=== PATIENT | female | born 1985 | race Caucasian/White ===

== ENCOUNTER 2019-03-30 14:42 | Inpatient (IN) ==
[2019-03-30 15:59] LABS: Basophils # 0.1 K/mcL (0.0-0.2); Basophils % 0.4 %; Eosinophils % 0.1 %; Hematocrit 45.7 % (35.3-44.9); Hemoglobin 14.7 g/dL (11.5-15.4); Immature Granulocytes % 0.6 % (0-4); Lymphocytes # 4.4 K/mcL (0.6-4.6); Lymphocytes % 21.7 %; Mean Corpuscular HGB Conc 32.2 g/dL (31.6-35.5); Mean Corpuscular Hemoglobin 32.2 pg (28.0-33.3); Mean Platelet Volume 11.1 fL (9.4-12.4); Monocytes # 2.1 K/mcL (0.0-1.3); Monocytes % 10.3 %; Neutrophils # 13.4 K/mcL (1.6-8.9); Platelet Count 247 K/mcL (140-400); Red Blood Count 4.57 M/mcL (3.82-4.97); Red Cell Distribution Width 12.8 % (11.5-14.5); Segmented Neutrophils % 66.9 %; White Blood Count 20.1 K/mcL (4.3-11.1)
[2019-03-30 16:25] LABS: BUN/Creatinine Ratio 20 (6-26); Blood Urea Nitrogen 14 mg/dL (6-20); Calcium 10.2 mg/dL (8.6-10.3); Carbon Dioxide 29 mEq/L (23-29); Chloride 98 mEq/L (98-107); Glucose 134 mg/dL (70-105); Osmolality,Calculated 290 (280-300); Potassium 4.3 mEq/L (3.5-5.1); Sodium 139 mEq/L (136-145); eGFR For African Americans > 60 (> 60); eGFR For Non-African Americans > 60 (> 60)
[2019-03-30 16:27] LABS: Troponin I 0.04 ng/mL (< 0.04)
[2019-03-30] MEDS ORDERED: 0.9 % Sodium Chloride 1,000 ML IVC ONE (16:31)
[2019-03-30] MEDS ORDERED: cefTRIAXone 1,000 MG in Water for inj. (sterile) 10 ML IVP ONE (16:37)
[2019-03-30] MEDS ORDERED: levoFLOXacin 750 MG/150 ML 750 MG/150 ML BAG IVPB ONE (16:37)
[2019-03-30 16:38] LABS: Bilirubin,Urine Negative (Negative); Blood,Urine Moderate (Negative); Clarity,Urine Cloudy (Clear); Color,Urine Dark Yellow (Yellow); Glucose,Urine (UA) Normal (Normal); Ketones,Urine Trace mg/dL (Negative); Leukocyte Esterase,Urine Large (Negative); Nitrite,Urine Negative (Negative); PH,Urine 6.5 pH Units (5.0-8.0); Protein,Urine 30 mg/dL (Neg-Trace); Specific Gravity,Urine > 1.030 (1.010-1.025); Urobilinogen,Urine Normal (Normal)
[2019-03-30] MEDS ORDERED: Isovue-370 500 ML BOTTLE IVP ONE (16:38)
[2019-03-30 16:41] LABS: Bacteria,Urine Many per hpf (None-Few); Hyaline Casts,Urine None Seen per lpf (None-Few); Squamous Epithelial Cell,Urine Many per lpf (None-Few); WBC,Urine 50-100 per hpf (0-3)
[2019-03-30] MEDS ORDERED: Acetaminophen 325 MG TABLET PO PRN (19:00)
[2019-03-30] MEDS ORDERED: Naloxone 0.4 MG/ML INJ IVP PRN (19:00)
[2019-03-30] MEDS ORDERED: Temazepam 15 MG CAPSULE PO SCH (21:00)
[2019-03-30] MEDS ORDERED: *HR* LORazepam 1 MG TABLET PO ONE (21:21)
[2019-03-30] MEDS: Ringers Solution, Lactated 1,000 ML IVC SCH (22:15)
[2019-03-30] MEDS: Divalproex Sodium 125 MG CAPSULE PO SCH (22:15)
[2019-03-30] MEDS: Cyprohepatdine 4 MG TABLET PO SCH (22:22)
[2019-03-30] MEDS: *HR* Heparin 5,000 UNIT/ML VIAL SQ SCH (22:33)
[2019-03-31 01:26] LABS: Hematocrit 41.4 % (35.3-44.9); Hemoglobin 12.9 g/dL (11.5-15.4); Mean Corpuscular HGB Conc 31.2 g/dL (31.6-35.5); Mean Corpuscular Hemoglobin 32.2 pg (28.0-33.3); Mean Corpuscular Volume 103.2 fL (83.0-100.0); Mean Platelet Volume 11.1 fL (9.4-12.4); Platelet Count 217 K/mcL (140-400); Red Blood Count 4.01 M/mcL (3.82-4.97); Red Cell Distribution Width 12.6 % (11.5-14.5); White Blood Count 12.9 K/mcL (4.3-11.1)
[2019-03-31 01:41] LABS: BUN/Creatinine Ratio 19 (6-26); Blood Urea Nitrogen 11 mg/dL (6-20); Carbon Dioxide 27 mEq/L (23-29); Chloride 103 mEq/L (98-107); Glucose 120 mg/dL (70-105); Magnesium 1.8 mg/dL (1.6-2.6); Osmolality,Calculated 289 (280-300); Potassium 4.1 mEq/L (3.5-5.1); Sodium 139 mEq/L (136-145); eGFR For African Americans > 60 (> 60); eGFR For Non-African Americans > 60 (> 60)
[2019-03-31] MEDS: Cyprohepatdine 4 MG TABLET PO SCH ×2 (09:07→20:34)
[2019-03-31] MEDS: Divalproex (12 HR) 250 MG TABLET PO SCH (09:07)
[2019-03-31] MEDS: levoFLOXacin 750 MG/150 ML 750 MG/150 ML BAG IVPB SCH (09:08)
[2019-03-31] MEDS: *HR* Heparin 5,000 UNIT/ML VIAL SQ SCH ×3 (09:08→23:33)
[2019-03-31] MEDS: Ringers Solution, Lactated 1,000 ML IVC SCH (12:40)
[2019-03-31] MEDS: Ipratropium/Albuterol Neb 3 ML IH SCH ×2 (16:06→22:23)
[2019-03-31] MEDS: Divalproex Sodium 125 MG CAPSULE PO SCH (20:34)
[2019-04-01] MEDS ORDERED: *HR* LORazepam 2 MG/ML VIAL IVP ONE (01:53)
[2019-04-01 02:37] LABS: ABG Base Excess 3 mEq/L (-2 to 3); ABG HCO3 31 mEq/L (21-27); ABG Oxygen Saturation 91 % (95-98); ABG PCO2 62 mmHg (35-45); ABG PH 7.31 pH Units (7.32-7.45); ABG PO2 69 mmHg (85-104); ABG TCO2 33 mEq/L (20-26)
[2019-04-01] MEDS: Ipratropium/Albuterol Neb 3 ML IH SCH ×4 (04:16→22:25)
[2019-04-01 05:11] LABS: Hematocrit 40.2 % (35.3-44.9); Hemoglobin 12.6 g/dL (11.5-15.4); Mean Corpuscular HGB Conc 31.3 g/dL (31.6-35.5); Mean Platelet Volume 10.5 fL (9.4-12.4); Platelet Count 288 K/mcL (140-400); Red Blood Count 3.94 M/mcL (3.82-4.97); Red Cell Distribution Width 12.6 % (11.5-14.5); White Blood Count 9.2 K/mcL (4.3-11.1)
[2019-04-01 05:27] LABS: BUN/Creatinine Ratio 16 (6-26); Blood Urea Nitrogen 10 mg/dL (6-20); Calcium 9.5 mg/dL (8.6-10.3); Carbon Dioxide 31 mEq/L (23-29); Chloride 102 mEq/L (98-107); Glucose 132 mg/dL (70-105); Osmolality,Calculated 291 (280-300); Potassium 4.4 mEq/L (3.5-5.1); Sodium 140 mEq/L (136-145); eGFR For African Americans > 60 (> 60); eGFR For Non-African Americans > 60 (> 60)
[2019-04-01] MEDS: *HR* Heparin 5,000 UNIT/ML VIAL SQ SCH ×2 (08:08→15:56)
[2019-04-01] MEDS: Divalproex (12 HR) 250 MG TABLET PO SCH (08:10)
[2019-04-01] MEDS: Cyprohepatdine 4 MG TABLET PO SCH ×2 (08:10→20:59)
[2019-04-01] MEDS: levoFLOXacin 750 MG/150 ML 750 MG/150 ML BAG IVPB SCH (08:10)
[2019-04-01] MEDS: Divalproex Sodium 125 MG CAPSULE PO SCH (20:59)
[2019-04-02] MEDS: *HR* Heparin 5,000 UNIT/ML VIAL SQ SCH ×3 (00:27→15:05)
[2019-04-02] MEDS: Ipratropium/Albuterol Neb 3 ML IH SCH ×2 (04:47→09:57)
[2019-04-02 04:58] LABS: Hematocrit 43.9 % (35.3-44.9); Hemoglobin 13.7 g/dL (11.5-15.4); Mean Corpuscular HGB Conc 31.2 g/dL (31.6-35.5); Mean Corpuscular Hemoglobin 32.5 pg (28.0-33.3); Platelet Count 345 K/mcL (140-400); Red Blood Count 4.22 M/mcL (3.82-4.97); Red Cell Distribution Width 12.5 % (11.5-14.5); White Blood Count 8.8 K/mcL (4.3-11.1)
[2019-04-02 05:11] LABS: BUN/Creatinine Ratio 17 (6-26); Blood Urea Nitrogen 10 mg/dL (6-20); Calcium 9.8 mg/dL (8.6-10.3); Carbon Dioxide 33 mEq/L (23-29); Chloride 102 mEq/L (98-107); Glucose 122 mg/dL (70-105); Osmolality,Calculated 292 (280-300); Potassium 4.5 mEq/L (3.5-5.1); Sodium 141 mEq/L (136-145); eGFR For African Americans > 60 (> 60); eGFR For Non-African Americans > 60 (> 60)
[2019-04-02] MEDS: levoFLOXacin 750 MG/150 ML 750 MG/150 ML BAG IVPB SCH (09:45)
[2019-04-02] MEDS: Cyprohepatdine 4 MG TABLET PO SCH ×2 (09:46→20:57)
[2019-04-02] MEDS: Divalproex (12 HR) 250 MG TABLET PO SCH (09:46)
[2019-04-02] MEDS ORDERED: *HR* Metoprolol 5 MG/5 ML VIAL IVP ONE (11:13)
[2019-04-02] MEDS: Metoprolol XL (24 HR) Succ 25 MG TAB.ER.24H PO SCH (11:50)
[2019-04-02] MEDS: Divalproex Sodium 125 MG CAPSULE PO SCH (20:57)
[2019-04-02] MEDS ORDERED: Levalbuterol Neb 1.25 MG/3 ML ONE (21:41)
[2019-04-02] MEDS ORDERED: Levalbuterol Neb 0.63 MG/3 ML ONE ×2 (21:46→21:47)
[2019-04-02] MEDS: Levalbuterol Neb 0.63 MG/3 ML IH SCH (21:48)
[2019-04-03] MEDS: *HR* Heparin 5,000 UNIT/ML VIAL SQ SCH ×2 (00:02→07:06)
[2019-04-03] MEDS: Levalbuterol Neb 0.63 MG/3 ML IH SCH ×2 (02:23→07:55)
[2019-04-03 05:05] LABS: Hematocrit 44.8 % (35.3-44.9); Mean Corpuscular HGB Conc 31.3 g/dL (31.6-35.5); Mean Corpuscular Hemoglobin 32.2 pg (28.0-33.3); Mean Platelet Volume 10.1 fL (9.4-12.4); Platelet Count 395 K/mcL (140-400); Red Blood Count 4.35 M/mcL (3.82-4.97); Red Cell Distribution Width 12.6 % (11.5-14.5)
[2019-04-03 05:17] LABS: White Blood Count 13.5 K/mcL (4.3-11.1)
[2019-04-03 05:18] LABS: BUN/Creatinine Ratio 24 (6-26); Blood Urea Nitrogen 16 mg/dL (6-20); Calcium 10.2 mg/dL (8.6-10.3); Carbon Dioxide 32 mEq/L (23-29); Chloride 99 mEq/L (98-107); Glucose 133 mg/dL (70-105); Osmolality,Calculated 289 (280-300); Potassium 4.1 mEq/L (3.5-5.1); Sodium 138 mEq/L (136-145); eGFR For African Americans > 60 (> 60); eGFR For Non-African Americans > 60 (> 60)
[2019-04-03] MEDS: Divalproex (12 HR) 250 MG TABLET PO SCH (11:02)
[2019-04-03] MEDS: levoFLOXacin 750 MG/150 ML 750 MG/150 ML BAG IVPB SCH (11:02)
[2019-04-03] MEDS: Cyprohepatdine 4 MG TABLET PO SCH (11:02)
[2019-04-03] MEDS: Metoprolol XL (24 HR) Succ 25 MG TAB.ER.24H PO SCH (11:02)
[2019-04-03 12:52] VITALS: BP 118/83
== END 2019-04-03 15:20 | disposition home or self-care (01) | DRG 871 ==
LOC: EMEROOARM 14:42 → 3BNU 14:42 → SUATTDRO 20:07 → 3BNU 22:49
PROVIDERS: ADMIT Internal Medicine; ATTEND Pharmacist

== ENCOUNTER 2019-08-09 18:38 | Inpatient (IN) ==
[2019-08-09] MEDS ORDERED: 0.9 % Sodium Chloride 1,000 ML IVC ONE (19:15)
[2019-08-09 20:33] LABS: Basophils # 0.1 K/mcL (0.0-0.2); Basophils % 0.8 %; Eosinophils % 0.1 %; Hematocrit 39.9 % (35.3-44.9); Hemoglobin 13.3 g/dL (11.5-15.4); Immature Granulocytes % 2.1 % (0-4); Lymphocytes % 34.2 %; Mean Corpuscular HGB Conc 33.3 g/dL (31.6-35.5); Mean Corpuscular Hemoglobin 32.9 pg (28.0-33.3); Mean Corpuscular Volume 98.8 fL (83.0-100.0); Mean Platelet Volume 10.9 fL (9.4-12.4); Monocytes # 0.7 K/mcL (0.0-1.3); Monocytes % 8.3 %; Nucleated Red Blood Cells 3.2 /100 WBC (0); Platelet Count 258 K/mcL (140-400); Red Blood Count 4.04 M/mcL (3.82-4.97); Red Cell Distribution Width 13.2 % (11.5-14.5); Segmented Neutrophils % 54.5 %; White Blood Count 8.7 K/mcL (4.3-11.1)
[2019-08-09 20:37] LABS: Neutrophils # 4.7 K/mcL (1.6-8.9)
[2019-08-09 20:48] LABS: Bilirubin,Urine Small (Negative); Blood,Urine Moderate (Negative); Clarity,Urine Cloudy (Clear); Color,Urine Yellow (Yellow); Glucose,Urine (UA) Normal (Normal); Ketones,Urine 40 mg/dL (Negative); Leukocyte Esterase,Urine Small (Negative); Nitrite,Urine Negative (Negative); Protein,Urine 100 mg/dL (Neg-Trace); Specific Gravity,Urine > 1.030 (1.010-1.025); Urobilinogen,Urine Normal (Normal)
[2019-08-09 20:49] LABS: Platelet Estimate Normal (Normal)
[2019-08-09 20:50] LABS: Polychromasia 1+ (Not Present)
[2019-08-09 20:54] LABS: Bacteria,Urine Few per hpf (None-Few); Hyaline Casts,Urine None Seen per lpf (None-Few); RBC,Urine 0-3 per hpf (0-3); Squamous Epithelial Cell,Urine Many per lpf (None-Few); WBC,Urine 30-50 per hpf (0-3)
[2019-08-09 20:55] LABS: BUN/Creatinine Ratio 23 (6-26); Blood Urea Nitrogen 17 mg/dL (6-20); Calcium 9.4 mg/dL (8.6-10.3); Carbon Dioxide 33 mEq/L (23-29); Chloride 96 mEq/L (98-107); Glucose 134 mg/dL (70-105); Osmolality,Calculated 292 (280-300); Potassium 3.7 mEq/L (3.5-5.1); Sodium 139 mEq/L (136-145); eGFR For African Americans > 60 (> 60); eGFR For Non-African Americans > 60 (> 60)
[2019-08-09 21:12] LABS: Troponin I 0.06 ng/mL (< 0.04)
[2019-08-09] MEDS ORDERED: Naloxone 0.4 MG/ML INJ IVP PRN (23:44)
[2019-08-09] MEDS ORDERED: Albuterol 2.5 MG/3 ML NEBULIZER IH PRN (23:44)
[2019-08-10] MEDS: Benzonatate 100 MG CAPSULE PO PRN (00:40)
[2019-08-10] MEDS ORDERED: Ipratropium/Albuterol Neb 3 ML IH PRN (01:22)
[2019-08-10 02:02] LABS: INR 1.1; Prothrombin Time 12.8 Seconds (9.4-12.1)
[2019-08-10] MEDS: Cyprohepatdine 4 MG TABLET PO SCH ×3 (02:07→21:00)
[2019-08-10] MEDS: Divalproex Sodium 125 MG CAPSULE PO SCH ×2 (02:07→21:00)
[2019-08-10 02:10] LABS: Alanine Aminotransferase 18 Units/L (7-52); Albumin 3.3 g/dL (3.5-5.7); Alkaline Phosphatase 42 Units/L (34-104); Aspartate Amino Transferase 21 Units/L (13-39); BUN/Creatinine Ratio 25 (6-26); Bilirubin,Total 0.6 mg/dL (0.3-1.0); Blood Urea Nitrogen 15 mg/dL (6-20); Calcium 8.7 mg/dL (8.6-10.3); Carbon Dioxide 29 mEq/L (23-29); Chloride 102 mEq/L (98-107); Chol/HDL Ratio 14.8 (0-4.9); Cholesterol 148 mg/dL (< 200); Globulin 3.2 g/dL (2.4-3.5); Glucose 117 mg/dL (70-105); HDL Cholesterol 10 mg/dL (40-59); LDL Cholesterol,Calculated 78 mg/dL (0-99); Magnesium 1.8 mg/dL (1.6-2.6); Osmolality,Calculated 290 (280-300); Phosphorous 1.7 mg/dL (2.7-4.5); Potassium 3.6 mEq/L (3.5-5.1); Sodium 139 mEq/L (136-145); Total Protein 6.5 g/dL (6.4-8.9); Triglycerides 299 mg/dL (< 150); eGFR For African Americans > 60 (> 60); eGFR For Non-African Americans > 60 (> 60)
[2019-08-10] MEDS ORDERED: *HR* Heparin 5,000 UNIT/ML VIAL IVP PRN ×2 (02:37)
[2019-08-10] MEDS ORDERED: *HR* Heparin 5,000 UNIT/ML VIAL IVP ONE (02:37)
[2019-08-10] MEDS: Heparin 25,000 UNIT/250 ML D5W 25,000 UNIT/250 ML IV.SOLN IVC SCH (03:22)
[2019-08-10] MEDS: Ipratropium/Albuterol Neb 3 ML IH SCH ×5 (03:37→22:14)
[2019-08-10] MEDS: Temazepam 15 MG CAPSULE PO SCH ×2 (04:57→21:01)
[2019-08-10 05:33] LABS: Basophils # 0.1 K/mcL (0.0-0.2); Basophils % 0.8 %; Eosinophils % 0.2 %; Hematocrit 38.8 % (35.3-44.9); Hemoglobin 12.7 g/dL (11.5-15.4); INR 1.3; Immature Granulocytes % 2.6 % (0-4); Lymphocytes # 4.3 K/mcL (0.6-4.6); Lymphocytes % 39.7 %; Mean Corpuscular HGB Conc 32.7 g/dL (31.6-35.5); Mean Corpuscular Hemoglobin 32.6 pg (28.0-33.3); Mean Corpuscular Volume 99.7 fL (83.0-100.0); Mean Platelet Volume 10.7 fL (9.4-12.4); Monocytes # 0.7 K/mcL (0.0-1.3); Monocytes % 6.2 %; Neutrophils # 5.5 K/mcL (1.6-8.9); Platelet Count 280 K/mcL (140-400); Prothrombin Time 14.7 Seconds (9.4-12.1); Red Blood Count 3.89 M/mcL (3.82-4.97); Red Cell Distribution Width 13.4 % (11.5-14.5); Segmented Neutrophils % 50.5 %; White Blood Count 10.9 K/mcL (4.3-11.1)
[2019-08-10 05:34] LABS: Hematocrit 39.4 % (35.3-44.9); Hemoglobin 12.4 g/dL (11.5-15.4); Heparin anti-factor XA UFH 0.8 IU/mL (0.30-0.70); Mean Corpuscular HGB Conc 31.5 g/dL (31.6-35.5); Mean Corpuscular Hemoglobin 32.7 pg (28.0-33.3); Mean Platelet Volume 10.8 fL (9.4-12.4); Platelet Count 260 K/mcL (140-400); Red Blood Count 3.79 M/mcL (3.82-4.97); Red Cell Distribution Width 13.2 % (11.5-14.5); White Blood Count 11.3 K/mcL (4.3-11.1)
[2019-08-10] MEDS ORDERED: *HR* Heparin 5,000 UNIT/ML VIAL SQ SCH (06:00)
[2019-08-10 06:06] LABS: Platelet Estimate Normal (Normal); Polychromasia 1+ (Not Present); Reactive Lymphocytes Present (Not Present)
[2019-08-10] MEDS ORDERED: MethylPREDNISolone 40 MG/ML VIAL IVP ONE (06:08)
[2019-08-10 08:28] LABS: Estimated Average Glucose 157 mg/dl
[2019-08-10] MEDS ORDERED: *HR* Dextrose 50 % in Water (Syg) 50 ML SYRINGE IVP PRN (08:57)
[2019-08-10] MEDS ORDERED: D5% in Water 1,000 ML IVC PRN (08:57)
[2019-08-10] MEDS ORDERED: Dextrose Gel 15 GM/37.5 ML TUBE PO PRN ×2 (08:57)
[2019-08-10] MEDS ORDERED: predniSONE 20 MG TABLET PO SCH ×2 (09:00→21:00)
[2019-08-10] MEDS: Divalproex (12 HR) 250 MG TABLET PO SCH (09:03)
[2019-08-10] MEDS ORDERED: Ondansetron 4 MG/2 ML VIAL IVP PRN (10:57)
[2019-08-10] MEDS: Insulin LISPRO 300 UNITS/3 ML VIAL SQ SCH ×3 (14:09→21:01)
[2019-08-10] MEDS ORDERED: Aspirin Enteric Coated 81 MG Tablet PO ONE ×2 (16:01→23:47)
[2019-08-11 01:51] LABS: Basophils % 0.4 %; Eosinophils % 0.3 %; Hematocrit 40.5 % (35.3-44.9); Hemoglobin 12.9 g/dL (11.5-15.4); Immature Granulocytes % 3.8 % (0-4); Mean Corpuscular HGB Conc 31.9 g/dL (31.6-35.5); Mean Corpuscular Hemoglobin 32.2 pg (28.0-33.3); Monocytes # 0.6 K/mcL (0.0-1.3); Monocytes % 5.7 %; Neutrophils # 4.2 K/mcL (1.6-8.9); Nucleated Red Blood Cells 1.6 /100 WBC (0); Platelet Count 309 K/mcL (140-400); Red Blood Count 4.01 M/mcL (3.82-4.97); Red Cell Distribution Width 13.6 % (11.5-14.5); Segmented Neutrophils % 40.8 %; White Blood Count 10.2 K/mcL (4.3-11.1)
[2019-08-11 02:12] LABS: BUN/Creatinine Ratio 12 (6-26); Blood Urea Nitrogen 8 mg/dL (6-20); Calcium 9.2 mg/dL (8.6-10.3); Carbon Dioxide 31 mEq/L (23-29); Chloride 102 mEq/L (98-107); Glucose 98 mg/dL (70-105); Osmolality,Calculated 286 (280-300); Potassium 3.2 mEq/L (3.5-5.1); Sodium 139 mEq/L (136-145); eGFR For African Americans > 60 (> 60); eGFR For Non-African Americans > 60 (> 60)
[2019-08-11 02:27] LABS: Hypochromasia Present (Not Present); Polychromasia 1+ (Not Present); Reactive Lymphocytes Present (Not Present)
[2019-08-11 02:28] LABS: Platelet Estimate Normal (Normal)
[2019-08-11] MEDS: Ipratropium/Albuterol Neb 3 ML IH SCH ×4 (03:54→22:35)
[2019-08-11] MEDS ORDERED: predniSONE 20 MG TABLET PO SCH (09:00)
[2019-08-11] MEDS ORDERED: Potassium Chloride Elixir 20 MEQ/15 ML UDC PO ONE (09:00)
[2019-08-11] MEDS: Divalproex (12 HR) 250 MG TABLET PO SCH (09:01)
[2019-08-11] MEDS: Insulin LISPRO 300 UNITS/3 ML VIAL SQ SCH ×4 (09:02→23:28)
[2019-08-11] MEDS: Aspirin Enteric Coated 81 MG Tablet PO SCH (09:02)
[2019-08-11] MEDS: Cyprohepatdine 4 MG TABLET PO SCH ×2 (09:02→23:01)
[2019-08-11] MEDS ORDERED: Isovue-370 500 ML BOTTLE IVP ONE (09:46)
[2019-08-11] MEDS ORDERED: levoFLOXacin 500 MG/100 ML 500 MG/100 ML BAG IVPB SCH (13:00)
[2019-08-11 13:28] LABS: ABG Base Excess 6 mEq/L (-2 to 3); ABG HCO3 33 mEq/L (21-27); ABG Oxygen Saturation 95 % (95-98); ABG PCO2 56 mmHg (35-45); ABG PH 7.38 pH Units (7.32-7.45); ABG PO2 79 mmHg (85-104); ABG TCO2 35 mEq/L (20-26)
[2019-08-11] MEDS: MethylPREDNISolone 40 MG/ML VIAL IVP SCH ×2 (15:27→18:42)
[2019-08-11] MEDS ORDERED: Doxycycline 100 MG in 0.9 % Sodium Chloride Mini Bag 100 ML IVPB SCH (18:00)
[2019-08-11] MEDS: Heparin 25,000 UNIT/250 ML D5W 25,000 UNIT/250 ML IV.SOLN IVC SCH (20:36)
[2019-08-11] MEDS: Temazepam 15 MG CAPSULE PO SCH (23:01)
[2019-08-11] MEDS: Divalproex Sodium 125 MG CAPSULE PO SCH (23:01)
[2019-08-11] MEDS: Doxycycline 100 MG in 0.9 % Sodium Chloride Mini Bag 100 ML IVPB SCH (23:01)
[2019-08-12] MEDS: Ipratropium/Albuterol Neb 3 ML IH SCH ×4 (04:41→22:05)
[2019-08-12] MEDS: MethylPREDNISolone 40 MG/ML VIAL IVP SCH ×2 (06:17→17:15)
[2019-08-12 07:58] LABS: Basophils # 0.1 K/mcL (0.0-0.2); Basophils % 0.7 %; Hemoglobin 13.1 g/dL (11.5-15.4); Immature Granulocytes % 3.6 % (0-4); Lymphocytes # 2.6 K/mcL (0.6-4.6); Lymphocytes % 17.9 %; Mean Corpuscular HGB Conc 33.6 g/dL (31.6-35.5); Mean Corpuscular Hemoglobin 33.1 pg (28.0-33.3); Mean Corpuscular Volume 98.5 fL (83.0-100.0); Monocytes # 0.9 K/mcL (0.0-1.3); Neutrophils # 10.5 K/mcL (1.6-8.9); Nucleated Red Blood Cells 0.2 /100 WBC (0); Platelet Count 415 K/mcL (140-400); Red Blood Count 3.96 M/mcL (3.82-4.97); Segmented Neutrophils % 71.8 %; White Blood Count 14.6 K/mcL (4.3-11.1)
[2019-08-12 08:05] LABS: BUN/Creatinine Ratio 21 (6-26); Blood Urea Nitrogen 13 mg/dL (6-20); Calcium 9.9 mg/dL (8.6-10.3); Carbon Dioxide 30 mEq/L (23-29); Chloride 98 mEq/L (98-107); Glucose 157 mg/dL (70-105); Osmolality,Calculated 295 (280-300); Potassium 3.8 mEq/L (3.5-5.1); Sodium 141 mEq/L (136-145); eGFR For African Americans > 60 (> 60); eGFR For Non-African Americans > 60 (> 60)
[2019-08-12 08:21] LABS: Reactive Lymphocytes Present (Not Present)
[2019-08-12 08:25] LABS: Hypochromasia Present (Not Present); Polychromasia 1+ (Not Present)
[2019-08-12] MEDS: Aspirin Enteric Coated 81 MG Tablet PO SCH (09:25)
[2019-08-12] MEDS: Divalproex (12 HR) 250 MG TABLET PO SCH (09:25)
[2019-08-12] MEDS: Insulin LISPRO 300 UNITS/3 ML VIAL SQ SCH ×4 (09:26→20:54)
[2019-08-12] MEDS: Cyprohepatdine 4 MG TABLET PO SCH ×2 (09:26→20:54)
[2019-08-12] MEDS: Doxycycline 100 MG in 0.9 % Sodium Chloride Mini Bag 100 ML IVPB SCH ×2 (10:41→23:13)
[2019-08-12] MEDS: *HR* Heparin 5,000 UNIT/ML VIAL SQ SCH ×2 (13:49→20:55)
[2019-08-12 16:04] LABS: Adenovirus Not Detected (Not Detect); Bordetella Pertussis Not Detected (Not Detect); Chlamydophila pneumoniae Not Detected (Not Detect); Coronavirus 229E Not Detected (Not Detect); Coronavirus HKU1 Not Detected (Not Detect); Coronavirus NL63 Not Detected (Not Detect); Coronavirus OC43 Not Detected (Not Detect); Human Metapneumovirus Not Detected (Not Detect); Human Rhinovirus/Enterovirus Not Detected (Not Detect); Influenza A Subtype 2009 H1 Not Detected (Not Detect); Influenza B Not Detected (Not Detect); Mycoplasma pneumoniae Not Detected (Not Detect); Parainfluenza Virus 1 Not Detected (Not Detect); Parainfluenza Virus 2 Not Detected (Not Detect); Parainfluenza Virus 3 Not Detected (Not Detect); Parainfluenza Virus 4 Not Detected (Not Detect); Respiratory Syncytial Virus Not Detected (Not Detect)
[2019-08-12] MEDS: Temazepam 15 MG CAPSULE PO SCH (20:54)
[2019-08-12] MEDS: Divalproex Sodium 125 MG CAPSULE PO SCH (20:54)
[2019-08-12] MEDS: Budesonide/Formoterol 160/4.5 1 PUFF INH IH SCH (22:05)
[2019-08-13] MEDS: Ipratropium/Albuterol Neb 3 ML IH SCH ×4 (04:42→22:49)
[2019-08-13] MEDS: MethylPREDNISolone 40 MG/ML VIAL IVP SCH ×2 (05:38→18:50)
[2019-08-13] MEDS: *HR* Heparin 5,000 UNIT/ML VIAL SQ SCH ×3 (05:38→21:37)
[2019-08-13 06:26] LABS: Basophils # 0.1 K/mcL (0.0-0.2); Basophils % 0.7 %; Eosinophils % 0.1 %; Hematocrit 38.9 % (35.3-44.9); Hemoglobin 12.7 g/dL (11.5-15.4); Immature Granulocytes % 3.9 % (0-4); Lymphocytes # 2.2 K/mcL (0.6-4.6); Lymphocytes % 13.2 %; Mean Corpuscular HGB Conc 32.6 g/dL (31.6-35.5); Mean Corpuscular Hemoglobin 32.9 pg (28.0-33.3); Mean Corpuscular Volume 100.8 fL (83.0-100.0); Mean Platelet Volume 10.9 fL (9.4-12.4); Monocytes # 0.8 K/mcL (0.0-1.3); Monocytes % 4.9 %; Neutrophils # 13.1 K/mcL (1.6-8.9); Platelet Count 455 K/mcL (140-400); Red Blood Count 3.86 M/mcL (3.82-4.97); Red Cell Distribution Width 14.6 % (11.5-14.5); Segmented Neutrophils % 77.2 %; White Blood Count 16.9 K/mcL (4.3-11.1)
[2019-08-13 06:45] LABS: BUN/Creatinine Ratio 32 (6-26); Blood Urea Nitrogen 21 mg/dL (6-20); Calcium 10.3 mg/dL (8.6-10.3); Carbon Dioxide 29 mEq/L (23-29); Chloride 98 mEq/L (98-107); Glucose 157 mg/dL (70-105); Osmolality,Calculated 292 (280-300); Potassium 4.2 mEq/L (3.5-5.1); Sodium 138 mEq/L (136-145); eGFR For African Americans > 60 (> 60); eGFR For Non-African Americans > 60 (> 60)
[2019-08-13] MEDS: Cyprohepatdine 4 MG TABLET PO SCH ×2 (10:05→21:36)
[2019-08-13] MEDS: Aspirin Enteric Coated 81 MG Tablet PO SCH (10:05)
[2019-08-13] MEDS: Divalproex (12 HR) 250 MG TABLET PO SCH (10:05)
[2019-08-13] MEDS: Doxycycline 100 MG in 0.9 % Sodium Chloride Mini Bag 100 ML IVPB SCH ×2 (10:06→21:37)
[2019-08-13] MEDS: Insulin LISPRO 300 UNITS/3 ML VIAL SQ SCH ×4 (10:06→21:38)
[2019-08-13] MEDS: Budesonide/Formoterol 160/4.5 1 PUFF INH IH SCH ×2 (11:00→22:49)
[2019-08-13] MEDS: Temazepam 15 MG CAPSULE PO SCH (21:36)
[2019-08-13] MEDS: Benzonatate 100 MG CAPSULE PO PRN (21:36)
[2019-08-13] MEDS: Divalproex Sodium 125 MG CAPSULE PO SCH (21:37)
[2019-08-14] MEDS: Ipratropium/Albuterol Neb 3 ML IH SCH ×4 (03:44→22:35)
[2019-08-14] MEDS: MethylPREDNISolone 40 MG/ML VIAL IVP SCH ×2 (05:25→09:13)
[2019-08-14] MEDS: *HR* Heparin 5,000 UNIT/ML VIAL SQ SCH ×3 (05:26→21:21)
[2019-08-14] MEDS: Cyprohepatdine 4 MG TABLET PO SCH ×2 (09:13→21:21)
[2019-08-14] MEDS: Divalproex (12 HR) 250 MG TABLET PO SCH (09:13)
[2019-08-14] MEDS: Aspirin Enteric Coated 81 MG Tablet PO SCH (09:13)
[2019-08-14] MEDS: Insulin LISPRO 300 UNITS/3 ML VIAL SQ SCH ×4 (09:13→21:21)
[2019-08-14] MEDS: Budesonide/Formoterol 160/4.5 1 PUFF INH IH SCH ×2 (10:39→22:34)
[2019-08-14] MEDS: Doxycycline 100 MG in 0.9 % Sodium Chloride Mini Bag 100 ML IVPB SCH ×2 (11:24→23:38)
[2019-08-14 13:49] LABS: Hematocrit 42.3 % (35.3-44.9); Hemoglobin 13.3 g/dL (11.5-15.4); Mean Corpuscular HGB Conc 31.4 g/dL (31.6-35.5); Mean Corpuscular Hemoglobin 32.6 pg (28.0-33.3); Mean Corpuscular Volume 103.7 fL (83.0-100.0); Mean Platelet Volume 10.4 fL (9.4-12.4); Platelet Count 523 K/mcL (140-400); Red Blood Count 4.08 M/mcL (3.82-4.97); Red Cell Distribution Width 14.6 % (11.5-14.5); White Blood Count 13.3 K/mcL (4.3-11.1)
[2019-08-14 14:21] LABS: Lymphocytes # 1.9 K/mcL (0.6-4.6); Monocytes # 0.3 K/mcL (0.0-1.3); Neutrophils # 11.2 K/mcL (1.6-8.9); Platelet Estimate Increased (Normal)
[2019-08-14 14:22] LABS: Reactive Lymphocytes Present (Not Present)
[2019-08-14] MEDS: Divalproex Sodium 125 MG CAPSULE PO SCH (21:20)
[2019-08-14] MEDS: Temazepam 15 MG CAPSULE PO SCH (21:21)
[2019-08-15] MEDS: Ipratropium/Albuterol Neb 3 ML IH SCH ×4 (03:47→21:27)
[2019-08-15] MEDS: *HR* Heparin 5,000 UNIT/ML VIAL SQ SCH ×3 (06:21→20:38)
[2019-08-15] MEDS: Aspirin Enteric Coated 81 MG Tablet PO SCH (08:19)
[2019-08-15] MEDS: Insulin LISPRO 300 UNITS/3 ML VIAL SQ SCH ×4 (08:19→20:46)
[2019-08-15] MEDS: Divalproex (12 HR) 250 MG TABLET PO SCH (08:19)
[2019-08-15] MEDS: Cyprohepatdine 4 MG TABLET PO SCH ×2 (08:19→20:38)
[2019-08-15] MEDS: MethylPREDNISolone 40 MG/ML VIAL IVP SCH (08:20)
[2019-08-15 09:02] LABS: Basophils # 0.1 K/mcL (0.0-0.2); Basophils % 0.9 %; Eosinophils % 0.1 %; Hematocrit 40.8 % (35.3-44.9); Immature Granulocytes % 4.8 % (0-4); Lymphocytes # 5.5 K/mcL (0.6-4.6); Lymphocytes % 34.2 %; Mean Corpuscular HGB Conc 31.9 g/dL (31.6-35.5); Mean Corpuscular Hemoglobin 33.2 pg (28.0-33.3); Mean Corpuscular Volume 104.1 fL (83.0-100.0); Mean Platelet Volume 10.2 fL (9.4-12.4); Monocytes # 1.3 K/mcL (0.0-1.3); Monocytes % 8.3 %; Neutrophils # 8.4 K/mcL (1.6-8.9); Nucleated Red Blood Cells 0.1 /100 WBC (0); Platelet Count 494 K/mcL (140-400); Red Blood Count 3.92 M/mcL (3.82-4.97); Red Cell Distribution Width 14.6 % (11.5-14.5); Segmented Neutrophils % 51.7 %; White Blood Count 16.2 K/mcL (4.3-11.1)
[2019-08-15] MEDS: Budesonide/Formoterol 160/4.5 1 PUFF INH IH SCH ×2 (10:28→21:27)
[2019-08-15] MEDS: Doxycycline 100 MG in 0.9 % Sodium Chloride Mini Bag 100 ML IVPB SCH ×2 (11:36→22:32)
[2019-08-15] MEDS: Temazepam 15 MG CAPSULE PO SCH (20:38)
[2019-08-15] MEDS: Divalproex Sodium 125 MG CAPSULE PO SCH (20:39)
[2019-08-16] MEDS: Ipratropium/Albuterol Neb 3 ML IH SCH ×2 (03:54→11:32)
[2019-08-16] MEDS: *HR* Heparin 5,000 UNIT/ML VIAL SQ SCH (05:06)
[2019-08-16 06:38] LABS: Basophils # 0.1 K/mcL (0.0-0.2); Basophils % 0.9 %; Eosinophils % 0.1 %; Hemoglobin 12.8 g/dL (11.5-15.4); Immature Granulocytes % 5.3 % (0-4); Lymphocytes # 5.8 K/mcL (0.6-4.6); Lymphocytes % 41.9 %; Mean Corpuscular HGB Conc 32.8 g/dL (31.6-35.5); Mean Corpuscular Hemoglobin 33.2 pg (28.0-33.3); Mean Platelet Volume 10.6 fL (9.4-12.4); Monocytes # 0.9 K/mcL (0.0-1.3); Monocytes % 6.8 %; Neutrophils # 6.2 K/mcL (1.6-8.9); Platelet Count 469 K/mcL (140-400); Red Blood Count 3.86 M/mcL (3.82-4.97); Red Cell Distribution Width 14.6 % (11.5-14.5); White Blood Count 13.8 K/mcL (4.3-11.1)
[2019-08-16 07:04] LABS: Platelet Estimate Normal (Normal)
[2019-08-16] MEDS: Insulin LISPRO 300 UNITS/3 ML VIAL SQ SCH (07:59)
[2019-08-16] MEDS ORDERED: predniSONE 20 MG TABLET PO SCH (09:00)
[2019-08-16 10:12] VITALS: BP 97/66
[2019-08-16] MEDS: Budesonide/Formoterol 160/4.5 1 PUFF INH IH SCH (11:32)
[2019-08-16] MEDS: Aspirin Enteric Coated 81 MG Tablet PO SCH (12:58)
[2019-08-16] MEDS: Cyprohepatdine 4 MG TABLET PO SCH (12:58)
[2019-08-16] MEDS: Divalproex (12 HR) 250 MG TABLET PO SCH (12:58)
== END 2019-08-16 13:51 | disposition home or self-care (01) | DRG 280 ==
LOC: 3ANU 18:38 → EMEROOARM 18:38 → SUATTDRO 22:06 → 3ANU 23:38
PROVIDERS: ADMIT Family Medicine; ATTEND Internal Medicine

== ENCOUNTER 2021-03-12 09:54 | Inpatient (IN) ==
[2021-03-12] MEDS: 0.9 % Sodium Chloride 1,000 ML IVC SCH ×2 (10:53→12:55)
[2021-03-12 11:04] LABS: Basophils # 0.1 K/mcL (0.0-0.2); Basophils % 0.4 %; Eosinophils % 0.1 %; Hematocrit 45.9 % (35.3-44.9); Hemoglobin 14.3 g/dL (11.5-15.4); Immature Granulocytes % 1.2 % (0-4); Lymphocytes # 2.1 K/mcL (0.6-4.6); Lymphocytes % 14.3 %; Mean Corpuscular HGB Conc 31.2 g/dL (31.6-35.5); Mean Corpuscular Hemoglobin 31.5 pg (28.0-33.3); Mean Corpuscular Volume 101.1 fL (83.0-100.0); Mean Platelet Volume 11.3 fL (9.4-12.4); Monocytes # 1.2 K/mcL (0.0-1.3); Monocytes % 8.1 %; Nucleated Red Blood Cells 0.2 /100 WBC (0); Platelet Count 293 K/mcL (140-400); Red Blood Count 4.54 M/mcL (3.82-4.97); Red Cell Distribution Width 15.7 % (11.5-14.5); Segmented Neutrophils % 75.9 %; White Blood Count 14.5 K/mcL (4.3-11.1)
[2021-03-12 11:14] LABS: INR 1.3; Prothrombin Time 14.5 Seconds (9.4-12.1)
[2021-03-12 11:17] LABS: Activated Partial Thrombo Time 33.9 Seconds (26.0-36.0)
[2021-03-12 11:31] LABS: BUN/Creatinine Ratio 10 (6-26); Blood Urea Nitrogen 10 mg/dL (6-20); Carbon Dioxide 24 mEq/L (23-29); Chloride 99 mEq/L (98-107); Potassium 3.6 mEq/L (3.5-5.1); Sodium 137 mEq/L (136-145)
[2021-03-12 11:32] LABS: Alanine Aminotransferase 18 Units/L (7-52); Albumin 3.7 g/dL (3.5-5.7); Albumin/Globulin Ratio 1.1 (1.1-2.2); Alkaline Phosphatase 67 Units/L (34-104); Aspartate Amino Transferase 31 Units/L (13-39); Bilirubin,Direct 0.1 mg/dL (0.0-0.2); Bilirubin,Indirect 0.3 mg/dL (0.0-1.0); Bilirubin,Total 0.4 mg/dL (0.3-1.0); Calcium 9.4 mg/dL (8.6-10.3); Globulin 3.5 g/dL (2.4-3.5); Glucose 271 mg/dL (70-105); Magnesium 1.4 mg/dL (1.6-2.6); Osmolality,Calculated 293 (280-300); Total Protein 7.2 g/dL (6.4-8.9); Troponin I 0.08 ng/mL (< 0.04); eGFR For African Americans > 60 (> 60); eGFR For Non-African Americans > 60 (> 60)
[2021-03-12] MEDS ORDERED: Isovue-370 500 ML BOTTLE IVP ONE (11:51)
[2021-03-12 11:52] LABS: Adenovirus Not Detected (Not Detect); Bordetella Pertussis Not Detected (Not Detect); Chlamydophila pneumoniae Not Detected (Not Detect); Coronavirus 229E Not Detected (Not Detect); Coronavirus HKU1 Not Detected (Not Detect); Coronavirus NL63 Not Detected (Not Detect); Coronavirus OC43 Not Detected (Not Detect); Human Metapneumovirus Not Detected (Not Detect); Human Rhinovirus/Enterovirus DETECTED (Not Detect); Influenza A Subtype 2009 H1 Not Detected (Not Detect); Influenza B Not Detected (Not Detect); Mycoplasma pneumoniae Not Detected (Not Detect); Parainfluenza Virus 1 Not Detected (Not Detect); Parainfluenza Virus 2 Not Detected (Not Detect); Parainfluenza Virus 3 Not Detected (Not Detect); Parainfluenza Virus 4 Not Detected (Not Detect); Respiratory Syncytial Virus Not Detected (Not Detect); SARS-CoV-2 Not Detected (Not Detect)
[2021-03-12 12:13] LABS: C-Reactive Protein 127 mg/L (Less than 10)
[2021-03-12] MEDS ORDERED: cefTRIAXone 1,000 MG in Water for inj. (sterile) 10 ML IVP ONE (13:08)
[2021-03-12] MEDS ORDERED: Azithromycin 500 MG in 0.9 % Sodium Chloride 250 ML IVPB ONE (13:08)
[2021-03-12] MEDS ORDERED: Aspirin 325 MG TABLET PO ONE (13:21)
[2021-03-12 13:47] LABS: Bilirubin,Urine Negative (Negative); Blood,Urine Negative (Negative); Clarity,Urine Clear (Clear); Color,Urine Light Yellow (Yellow); Glucose,Urine (UA) 100 mg/dL (Normal); Ketones,Urine Negative (Negative); Leukocyte Esterase,Urine Negative (Negative); Nitrite,Urine Negative (Negative); Protein,Urine 30 mg/dL (Neg-Trace); Urobilinogen,Urine Normal (Normal)
[2021-03-12 13:48] LABS: Bacteria,Urine Few per hpf (None-Few); Hyaline Casts,Urine Few per lpf (None Seen); Mucus,Urine Few per lpf (None-Few); RBC,Urine 0-3 per hpf (0-3); Specific Gravity,Urine > 1.030 (1.010-1.025); Squamous Epithelial Cell,Urine Few per hpf (None-Few); WBC,Urine 0-3 per hpf (0-3)
[2021-03-12] MEDS ORDERED: Naloxone 0.4 MG/ML INJ IVP PRN (14:48)
[2021-03-12] MEDS ORDERED: methylPREDNISolone 125 MG/2 ML VIAL IVP ONE (14:51)
[2021-03-12] MEDS ORDERED: *HR* Dextrose 50 % in Water (Vial) 50 ML VIAL IVP PRN (14:55)
[2021-03-12] MEDS ORDERED: Dextrose Gel 15 GM/37.5 ML TUBE PO PRN ×2 (14:55)
[2021-03-12] MEDS ORDERED: D5% in Water 1,000 ML IVC PRN (14:55)
[2021-03-12] MEDS ORDERED: Ipratropium/Albuterol Neb 3 ML ONE (15:02)
[2021-03-12] MEDS: Ipratropium/Albuterol Neb 3 ML IH SCH ×2 (16:00→22:27)
[2021-03-12] MEDS ORDERED: Magnesium Sulfate 2 GM in D5% in Water 100 ML IVPB ONE (17:04)
[2021-03-12] MEDS: Insulin LISPRO 300 UNITS/3 ML VIAL SUBQ SCH ×2 (17:44→20:57)
[2021-03-12] MEDS: *HR* Heparin 5,000 UNIT/ML VIAL SQ SCH (17:49)
[2021-03-12] MEDS: levoFLOXacin 750 MG/150 ML 750 MG/150 ML BAG IVPB SCH (18:59)
[2021-03-12] MEDS: Divalproex Sodium 125 MG Sprinkle Capsule (DR) PO SCH (20:54)
[2021-03-12] MEDS: Cyprohepatdine 4 MG TABLET PO SCH (20:54)
[2021-03-12] MEDS: Baclofen 10 MG TABLET PO SCH (20:55)
[2021-03-13] MEDS: MethylPREDNISolone 40 MG/ML VIAL IVP SCH ×3 (01:08→16:00)
[2021-03-13 03:24] LABS: Basophils % 0.3 %; Hematocrit 42.7 % (35.3-44.9); Hemoglobin 13.9 g/dL (11.5-15.4); Immature Granulocytes % 1.5 % (0-4); Lymphocytes % 8.3 %; Mean Corpuscular HGB Conc 32.6 g/dL (31.6-35.5); Mean Corpuscular Hemoglobin 32.4 pg (28.0-33.3); Mean Corpuscular Volume 99.5 fL (83.0-100.0); Mean Platelet Volume 10.8 fL (9.4-12.4); Monocytes # 0.2 K/mcL (0.0-1.3); Monocytes % 1.6 %; Neutrophils # 10.9 K/mcL (1.6-8.9); Platelet Count 226 K/mcL (140-400); Red Blood Count 4.29 M/mcL (3.82-4.97); Red Cell Distribution Width 15.4 % (11.5-14.5); Segmented Neutrophils % 88.3 %; White Blood Count 12.3 K/mcL (4.3-11.1)
[2021-03-13] MEDS: Ipratropium/Albuterol Neb 3 ML IH SCH ×4 (03:30→22:27)
[2021-03-13 03:47] LABS: BUN/Creatinine Ratio 17 (6-26); Blood Urea Nitrogen 10 mg/dL (6-20); Calcium 8.3 mg/dL (8.6-10.3); Carbon Dioxide 26 mEq/L (23-29); Chloride 105 mEq/L (98-107); Glucose 216 mg/dL (70-105); Magnesium 1.8 mg/dL (1.6-2.6); Osmolality,Calculated 290 (280-300); Phosphorous 2.4 mg/dL (2.7-4.5); Potassium 4.6 mEq/L (3.5-5.1); Sodium 137 mEq/L (136-145); eGFR For African Americans > 60 (> 60); eGFR For Non-African Americans > 60 (> 60)
[2021-03-13] MEDS: *HR* Heparin 5,000 UNIT/ML VIAL SQ SCH ×2 (05:30→16:14)
[2021-03-13] MEDS: Baclofen 10 MG TABLET PO SCH ×2 (09:30→20:14)
[2021-03-13] MEDS: Divalproex Sodium 125 MG Sprinkle Capsule (DR) PO SCH ×2 (09:30→20:14)
[2021-03-13] MEDS: Cyprohepatdine 4 MG TABLET PO SCH ×2 (09:30→20:14)
[2021-03-13] MEDS: Insulin LISPRO 300 UNITS/3 ML VIAL SUBQ SCH ×4 (09:30→20:14)
[2021-03-13] MEDS: levoFLOXacin 750 MG/150 ML 750 MG/150 ML BAG IVPB SCH (12:24)
[2021-03-14] MEDS: MethylPREDNISolone 40 MG/ML VIAL IVP SCH ×3 (00:12→18:23)
[2021-03-14] MEDS: Ipratropium/Albuterol Neb 3 ML IH SCH ×4 (04:22→21:43)
[2021-03-14] MEDS: *HR* Heparin 5,000 UNIT/ML VIAL SQ SCH ×2 (06:03→17:02)
[2021-03-14] MEDS: levoFLOXacin 750 MG/150 ML 750 MG/150 ML BAG IVPB SCH (09:22)
[2021-03-14] MEDS: Divalproex Sodium 125 MG Sprinkle Capsule (DR) PO SCH ×2 (09:25→20:32)
[2021-03-14] MEDS: Baclofen 10 MG TABLET PO SCH ×2 (09:25→20:34)
[2021-03-14] MEDS: Cyprohepatdine 4 MG TABLET PO SCH ×2 (09:25→20:33)
[2021-03-14] MEDS: Insulin LISPRO 300 UNITS/3 ML VIAL SUBQ SCH ×4 (09:26→20:40)
[2021-03-15] MEDS: MethylPREDNISolone 40 MG/ML VIAL IVP SCH ×3 (00:08→16:52)
[2021-03-15] MEDS: Ipratropium/Albuterol Neb 3 ML IH SCH ×4 (03:44→21:41)
[2021-03-15] MEDS: *HR* Heparin 5,000 UNIT/ML VIAL SQ SCH ×2 (05:10→16:52)
[2021-03-15] MEDS: Divalproex Sodium 125 MG Sprinkle Capsule (DR) PO SCH ×2 (08:55→21:39)
[2021-03-15] MEDS: Baclofen 10 MG TABLET PO SCH ×2 (08:56→21:38)
[2021-03-15] MEDS: Cyprohepatdine 4 MG TABLET PO SCH ×2 (08:56→21:38)
[2021-03-15] MEDS: Insulin LISPRO 300 UNITS/3 ML VIAL SUBQ SCH ×4 (08:57→21:43)
[2021-03-15] MEDS: levoFLOXacin 750 MG/150 ML 750 MG/150 ML BAG IVPB SCH (09:19)
[2021-03-15] MEDS: GuaiFENesin Liq 200 MG/10 ML UDC PO PRN (12:23)
[2021-03-16] MEDS: MethylPREDNISolone 40 MG/ML VIAL IVP SCH
[2021-03-16] MEDS: Ipratropium/Albuterol Neb 3 ML IH SCH ×4 (03:39→22:18)
[2021-03-16] MEDS: *HR* Heparin 5,000 UNIT/ML VIAL SQ SCH ×2 (05:58→18:19)
[2021-03-16] MEDS: Insulin LISPRO 300 UNITS/3 ML VIAL SUBQ SCH ×4 (07:16→22:41)
[2021-03-16 07:41] LABS: Basophils # 0.2 K/mcL (0.0-0.2); Basophils % 1.2 %; Eosinophils # 0.1 K/mcL (0.0-0.6); Eosinophils % 0.7 %; Hematocrit 43.7 % (35.3-44.9); Hemoglobin 14.2 g/dL (11.5-15.4); Immature Granulocytes % 2.9 % (0-4); Lymphocytes # 2.5 K/mcL (0.6-4.6); Lymphocytes % 19.1 %; Mean Corpuscular HGB Conc 32.5 g/dL (31.6-35.5); Mean Corpuscular Hemoglobin 32.1 pg (28.0-33.3); Mean Corpuscular Volume 98.9 fL (83.0-100.0); Mean Platelet Volume 10.7 fL (9.4-12.4); Monocytes # 0.8 K/mcL (0.0-1.3); Monocytes % 6.4 %; Nucleated Red Blood Cells 0.2 /100 WBC (0); Platelet Count 225 K/mcL (140-400); Red Blood Count 4.42 M/mcL (3.82-4.97); Red Cell Distribution Width 15.7 % (11.5-14.5); Segmented Neutrophils % 69.7 %; White Blood Count 12.9 K/mcL (4.3-11.1)
[2021-03-16 07:59] LABS: BUN/Creatinine Ratio 34 (6-26); Blood Urea Nitrogen 21 mg/dL (6-20); Calcium 9.7 mg/dL (8.6-10.3); Carbon Dioxide 31 mEq/L (23-29); Chloride 99 mEq/L (98-107); Glucose 143 mg/dL (70-105); Magnesium 2.1 mg/dL (1.6-2.6); Osmolality,Calculated 291 (280-300); Phosphorous 4.5 mg/dL (2.7-4.5); Potassium 3.9 mEq/L (3.5-5.1); Sodium 138 mEq/L (136-145); eGFR For African Americans > 60 (> 60); eGFR For Non-African Americans > 60 (> 60)
[2021-03-16] MEDS: Divalproex Sodium 125 MG Sprinkle Capsule (DR) PO SCH ×2 (09:49→22:40)
[2021-03-16] MEDS: predniSONE 20 MG TABLET PO SCH (09:49)
[2021-03-16] MEDS: levoFLOXacin 750 MG TABLET PO SCH (09:49)
[2021-03-16] MEDS: Cyprohepatdine 4 MG TABLET PO SCH ×2 (09:49→22:39)
[2021-03-16] MEDS: Baclofen 10 MG TABLET PO SCH ×2 (09:50→22:39)
[2021-03-16] MEDS: Saline Nasal Spray 44 ML BOTTLE NS PRN (12:44)
[2021-03-16 13:44] LABS: Adenovirus Not Detected (Not Detect); Bordetella Pertussis Not Detected (Not Detect); Chlamydophila pneumoniae Not Detected (Not Detect); Coronavirus 229E Not Detected (Not Detect); Coronavirus HKU1 Not Detected (Not Detect); Coronavirus NL63 Not Detected (Not Detect); Coronavirus OC43 Not Detected (Not Detect); Human Metapneumovirus Not Detected (Not Detect); Human Rhinovirus/Enterovirus DETECTED (Not Detect); Influenza A Subtype 2009 H1 Not Detected (Not Detect); Influenza B Not Detected (Not Detect); Mycoplasma pneumoniae Not Detected (Not Detect); Parainfluenza Virus 1 Not Detected (Not Detect); Parainfluenza Virus 2 Not Detected (Not Detect); Parainfluenza Virus 3 Not Detected (Not Detect); Parainfluenza Virus 4 Not Detected (Not Detect); Respiratory Syncytial Virus Not Detected (Not Detect); SARS-CoV-2 Not Detected (Not Detect)
[2021-03-17] MEDS: Ipratropium/Albuterol Neb 3 ML IH SCH ×4 (03:40→19:56)
[2021-03-17 05:45] LABS: Basophils # 0.2 K/mcL (0.0-0.2); Basophils % 1.4 %; Eosinophils % 0.1 %; Hemoglobin 15.1 g/dL (11.5-15.4); Immature Granulocytes % 3.8 % (0-4); Mean Corpuscular HGB Conc 32.1 g/dL (31.6-35.5); Mean Corpuscular Hemoglobin 31.7 pg (28.0-33.3); Mean Corpuscular Volume 98.5 fL (83.0-100.0); Mean Platelet Volume 10.6 fL (9.4-12.4); Monocytes # 0.9 K/mcL (0.0-1.3); Monocytes % 6.8 %; Platelet Count 233 K/mcL (140-400); Red Blood Count 4.77 M/mcL (3.82-4.97); Red Cell Distribution Width 15.4 % (11.5-14.5); Segmented Neutrophils % 55.9 %; White Blood Count 12.5 K/mcL (4.3-11.1)
[2021-03-17 06:35] LABS: BUN/Creatinine Ratio 30 (6-26); Blood Urea Nitrogen 21 mg/dL (6-20); Calcium 9.6 mg/dL (8.6-10.3); Carbon Dioxide 33 mEq/L (23-29); Chloride 99 mEq/L (98-107); Glucose 92 mg/dL (70-105); Magnesium 2.2 mg/dL (1.6-2.6); Osmolality,Calculated 291 (280-300); Phosphorous 4.4 mg/dL (2.7-4.5); Potassium 3.6 mEq/L (3.5-5.1); Sodium 139 mEq/L (136-145); eGFR For African Americans > 60 (> 60); eGFR For Non-African Americans > 60 (> 60)
[2021-03-17] MEDS: Insulin LISPRO 300 UNITS/3 ML VIAL SUBQ SCH ×4 (07:14→21:06)
[2021-03-17] MEDS: Divalproex Sodium 125 MG Sprinkle Capsule (DR) PO SCH ×2 (08:42→22:32)
[2021-03-17] MEDS: *HR* Heparin 5,000 UNIT/ML VIAL SQ SCH ×2 (08:42→17:40)
[2021-03-17] MEDS: Cyprohepatdine 4 MG TABLET PO SCH ×2 (08:42→22:32)
[2021-03-17] MEDS: predniSONE 20 MG TABLET PO SCH (08:42)
[2021-03-17] MEDS: Baclofen 10 MG TABLET PO SCH ×2 (08:43→22:32)
[2021-03-17] MEDS: levoFLOXacin 750 MG TABLET PO SCH (08:43)
[2021-03-17] MEDS: Saline Nasal Spray 44 ML BOTTLE NS PRN (22:32)
[2021-03-17] MEDS: GuaiFENesin Liq 200 MG/10 ML UDC PO PRN (22:40)
[2021-03-18] MEDS: Ipratropium/Albuterol Neb 3 ML IH SCH ×4 (03:32→22:00)
[2021-03-18 05:52] LABS: Basophils # 0.1 K/mcL (0.0-0.2); Basophils % 0.9 %; Eosinophils % 0.1 %; Hematocrit 45.9 % (35.3-44.9); Hemoglobin 14.9 g/dL (11.5-15.4); Immature Granulocytes % 3.7 % (0-4); Lymphocytes # 4.6 K/mcL (0.6-4.6); Lymphocytes % 31.1 %; Mean Corpuscular HGB Conc 32.5 g/dL (31.6-35.5); Mean Corpuscular Hemoglobin 31.9 pg (28.0-33.3); Mean Corpuscular Volume 98.3 fL (83.0-100.0); Mean Platelet Volume 10.5 fL (9.4-12.4); Monocytes # 0.9 K/mcL (0.0-1.3); Monocytes % 5.9 %; Neutrophils # 8.6 K/mcL (1.6-8.9); Platelet Count 241 K/mcL (140-400); Red Blood Count 4.67 M/mcL (3.82-4.97); Red Cell Distribution Width 15.2 % (11.5-14.5); Segmented Neutrophils % 58.3 %; White Blood Count 14.8 K/mcL (4.3-11.1)
[2021-03-18] MEDS: *HR* Heparin 5,000 UNIT/ML VIAL SQ SCH ×2 (06:45→17:13)
[2021-03-18 06:49] LABS: BUN/Creatinine Ratio 32 (6-26); Blood Urea Nitrogen 21 mg/dL (6-20); Calcium 9.9 mg/dL (8.6-10.3); Carbon Dioxide 33 mEq/L (23-29); Chloride 99 mEq/L (98-107); Glucose 93 mg/dL (70-105); Magnesium 2.1 mg/dL (1.6-2.6); Osmolality,Calculated 291 (280-300); Potassium 3.6 mEq/L (3.5-5.1); Sodium 139 mEq/L (136-145); eGFR For African Americans > 60 (> 60); eGFR For Non-African Americans > 60 (> 60)
[2021-03-18] MEDS: Insulin LISPRO 300 UNITS/3 ML VIAL SUBQ SCH ×4 (07:32→21:32)
[2021-03-18] MEDS: Divalproex Sodium 125 MG Sprinkle Capsule (DR) PO SCH ×2 (08:52→21:29)
[2021-03-18] MEDS: predniSONE 20 MG TABLET PO SCH (08:52)
[2021-03-18] MEDS: Baclofen 10 MG TABLET PO SCH ×3 (08:52→21:29)
[2021-03-18] MEDS: levoFLOXacin 750 MG TABLET PO SCH (08:53)
[2021-03-18] MEDS: Cyprohepatdine 4 MG TABLET PO SCH ×2 (08:53→21:29)
[2021-03-19] MEDS: Ipratropium/Albuterol Neb 3 ML IH SCH ×4 (03:24→22:25)
[2021-03-19] MEDS: *HR* Heparin 5,000 UNIT/ML VIAL SQ SCH ×2 (05:10→17:38)
[2021-03-19 07:47] LABS: Basophils # 0.1 K/mcL (0.0-0.2); Basophils % 0.8 %; Eosinophils % 0.3 %; Hematocrit 43.8 % (35.3-44.9); Hemoglobin 14.5 g/dL (11.5-15.4); Immature Granulocytes % 3.5 % (0-4); Lymphocytes # 4.2 K/mcL (0.6-4.6); Lymphocytes % 27.6 %; Mean Corpuscular HGB Conc 33.1 g/dL (31.6-35.5); Mean Corpuscular Hemoglobin 32.7 pg (28.0-33.3); Mean Corpuscular Volume 98.9 fL (83.0-100.0); Mean Platelet Volume 10.8 fL (9.4-12.4); Monocytes # 0.9 K/mcL (0.0-1.3); Monocytes % 5.9 %; Neutrophils # 9.5 K/mcL (1.6-8.9); Platelet Count 242 K/mcL (140-400); Red Blood Count 4.43 M/mcL (3.82-4.97); Red Cell Distribution Width 15.1 % (11.5-14.5); Segmented Neutrophils % 61.9 %; White Blood Count 15.3 K/mcL (4.3-11.1)
[2021-03-19 08:24] LABS: BUN/Creatinine Ratio 34 (6-26); Blood Urea Nitrogen 22 mg/dL (6-20); Calcium 9.4 mg/dL (8.6-10.3); Carbon Dioxide 32 mEq/L (23-29); Chloride 100 mEq/L (98-107); Glucose 116 mg/dL (70-105); Osmolality,Calculated 294 (280-300); Phosphorous 3.6 mg/dL (2.7-4.5); Potassium 3.1 mEq/L (3.5-5.1); Sodium 140 mEq/L (136-145); eGFR For African Americans > 60 (> 60); eGFR For Non-African Americans > 60 (> 60)
[2021-03-19] MEDS: Baclofen 10 MG TABLET PO SCH ×3 (08:52→22:00)
[2021-03-19] MEDS: predniSONE 20 MG TABLET PO SCH (08:52)
[2021-03-19] MEDS: Insulin LISPRO 300 UNITS/3 ML VIAL SUBQ SCH ×4 (08:53→21:47)
[2021-03-19] MEDS: levoFLOXacin 750 MG TABLET PO SCH (08:53)
[2021-03-19] MEDS: Divalproex Sodium 125 MG Sprinkle Capsule (DR) PO SCH ×2 (08:53→22:01)
[2021-03-19] MEDS: Cyprohepatdine 4 MG TABLET PO SCH ×2 (08:58→22:00)
[2021-03-19] MEDS: Acetylcysteine 10% 2 ML INHSOL IH SCH ×3 (15:39→22:23)
[2021-03-19] MEDS ORDERED: Divalproex (12 HR) 250 MG TABLET PO SCH (21:00)
[2021-03-20 03:13] LABS: Basophils # 0.1 K/mcL (0.0-0.2); Basophils % 0.5 %; Eosinophils % 0.1 %; Hematocrit 44.9 % (35.3-44.9); Hemoglobin 14.8 g/dL (11.5-15.4); Immature Granulocytes % 3.1 % (0-4); Lymphocytes # 3.3 K/mcL (0.6-4.6); Lymphocytes % 19.7 %; Mean Corpuscular Hemoglobin 32.2 pg (28.0-33.3); Mean Corpuscular Volume 97.6 fL (83.0-100.0); Mean Platelet Volume 10.9 fL (9.4-12.4); Neutrophils # 11.8 K/mcL (1.6-8.9); Platelet Count 273 K/mcL (140-400); Segmented Neutrophils % 70.6 %; White Blood Count 16.7 K/mcL (4.3-11.1)
[2021-03-20 03:29] LABS: BUN/Creatinine Ratio 32 (6-26); Blood Urea Nitrogen 21 mg/dL (6-20); Calcium 9.7 mg/dL (8.6-10.3); Carbon Dioxide 31 mEq/L (23-29); Chloride 100 mEq/L (98-107); Glucose 173 mg/dL (70-105); Magnesium 1.9 mg/dL (1.6-2.6); Osmolality,Calculated 289 (280-300); Phosphorous 2.9 mg/dL (2.7-4.5); Potassium 3.6 mEq/L (3.5-5.1); Sodium 136 mEq/L (136-145); eGFR For African Americans > 60 (> 60); eGFR For Non-African Americans > 60 (> 60)
[2021-03-20] MEDS: Ipratropium/Albuterol Neb 3 ML IH SCH ×4 (04:21→21:35)
[2021-03-20] MEDS: Acetylcysteine 10% 2 ML INHSOL IH SCH ×4 (04:21→21:36)
[2021-03-20] MEDS: *HR* Heparin 5,000 UNIT/ML VIAL SQ SCH ×2 (05:25→16:34)
[2021-03-20] MEDS: Baclofen 10 MG TABLET PO SCH ×3 (08:19→21:00)
[2021-03-20] MEDS: Cyprohepatdine 4 MG TABLET PO SCH ×2 (08:23→21:00)
[2021-03-20] MEDS: predniSONE 20 MG TABLET PO SCH (08:23)
[2021-03-20] MEDS: Divalproex (12 HR) 250 MG TABLET PO SCH (08:23)
[2021-03-20] MEDS: Insulin LISPRO 300 UNITS/3 ML VIAL SUBQ SCH ×4 (08:24→21:01)
[2021-03-20] MEDS: Divalproex Sodium 125 MG Sprinkle Capsule (DR) PO SCH (21:00)
[2021-03-21 03:13] LABS: Basophils # 0.1 K/mcL (0.0-0.2); Basophils % 0.6 %; Eosinophils % 0.2 %; Hematocrit 43.8 % (35.3-44.9); Hemoglobin 14.4 g/dL (11.5-15.4); Lymphocytes # 5.1 K/mcL (0.6-4.6); Lymphocytes % 27.7 %; Mean Corpuscular HGB Conc 32.9 g/dL (31.6-35.5); Mean Corpuscular Hemoglobin 31.9 pg (28.0-33.3); Mean Corpuscular Volume 97.1 fL (83.0-100.0); Mean Platelet Volume 11.1 fL (9.4-12.4); Monocytes # 1.1 K/mcL (0.0-1.3); Neutrophils # 11.6 K/mcL (1.6-8.9); Platelet Count 273 K/mcL (140-400); Red Blood Count 4.51 M/mcL (3.82-4.97); Red Cell Distribution Width 14.8 % (11.5-14.5); Segmented Neutrophils % 62.5 %; White Blood Count 18.5 K/mcL (4.3-11.1)
[2021-03-21 03:33] LABS: BUN/Creatinine Ratio 32 (6-26); Blood Urea Nitrogen 20 mg/dL (6-20); Calcium 9.1 mg/dL (8.6-10.3); Carbon Dioxide 28 mEq/L (23-29); Chloride 100 mEq/L (98-107); Glucose 179 mg/dL (70-105); Magnesium 1.7 mg/dL (1.6-2.6); Osmolality,Calculated 291 (280-300); Phosphorous 3.8 mg/dL (2.7-4.5); Potassium 3.8 mEq/L (3.5-5.1); Sodium 137 mEq/L (136-145); eGFR For African Americans > 60 (> 60); eGFR For Non-African Americans > 60 (> 60)
[2021-03-21] MEDS: Acetylcysteine 10% 2 ML INHSOL IH SCH ×4 (03:56→22:10)
[2021-03-21] MEDS: Ipratropium/Albuterol Neb 3 ML IH SCH ×4 (03:56→22:10)
[2021-03-21] MEDS: *HR* Heparin 5,000 UNIT/ML VIAL SQ SCH ×2 (05:29→16:42)
[2021-03-21] MEDS: Divalproex (12 HR) 250 MG TABLET PO SCH (08:30)
[2021-03-21] MEDS: Cyprohepatdine 4 MG TABLET PO SCH ×2 (08:30→21:39)
[2021-03-21] MEDS: Insulin LISPRO 300 UNITS/3 ML VIAL SUBQ SCH ×4 (08:30→21:39)
[2021-03-21] MEDS: predniSONE 20 MG TABLET PO SCH (08:30)
[2021-03-21] MEDS: Baclofen 10 MG TABLET PO SCH ×3 (08:31→21:39)
[2021-03-21] MEDS: Divalproex Sodium 125 MG Sprinkle Capsule (DR) PO SCH (21:39)
[2021-03-22] MEDS: Acetylcysteine 10% 2 ML INHSOL IH SCH ×3 (04:22→15:22)
[2021-03-22] MEDS: Ipratropium/Albuterol Neb 3 ML IH SCH ×3 (04:22→15:21)
[2021-03-22] MEDS: *HR* Heparin 5,000 UNIT/ML VIAL SQ SCH (05:54)
[2021-03-22 06:46] VITALS: TEMP 97.3
[2021-03-22] MEDS: Divalproex (12 HR) 250 MG TABLET PO SCH (08:18)
[2021-03-22] MEDS: Baclofen 10 MG TABLET PO SCH ×2 (08:18→15:13)
[2021-03-22] MEDS: predniSONE 20 MG TABLET PO SCH (08:18)
[2021-03-22] MEDS: Cyprohepatdine 4 MG TABLET PO SCH (08:18)
[2021-03-22] MEDS: Insulin LISPRO 300 UNITS/3 ML VIAL SUBQ SCH ×2 (08:20→14:30)
[2021-03-22] MEDS ORDERED: Acetaminophen 325 MG TABLET PO PRN (08:43)
[2021-03-22 10:49] VITALS: BP 109/68; PULSE 96
[2021-03-22 12:26] VITALS: O2SAT 93
== END 2021-03-22 16:51 | disposition home health service (06) | DRG 871 ==
LOC: 2NENU 09:54 → EMEROOARM 09:54 → 2NENU 17:01 → SUATTDRO 17:34
PROVIDERS: ADMIT Student in an Organized Health Care Education/Training Program; ATTEND Internal Medicine